=== PATIENT | male | born 1990 | race Two or more races ===

== ENCOUNTER 2025-04-01 19:56 | Emergency (ER) | payer BC, OTHER ==
[~2025-04-01] VITALS: Ht 170.2 cm; Wt 72.7 kg
--- NOTE | 2025-04-01 20:12 | ED.PDOC ---
History of Present Illness(SKN HPI Comments PTG CAME TO ER WITH CC OF INJURY TO LEFT POINTER FINGER, PT WAS WORKING ON HIS TRUCK WHEN A SCREW SLICED HIS FINGER. PT IS A&OX4 RR EVEN ANF REGULAR. DENIES NUMBNESS, WEAKNESS, FEVER OR CHILLS Chief Complaint: Upper Extremity Time Seen by MD: 20:02 History of Present Illness: Nurses Notes, Medications, Allergies Allergies: Coded Allergies: NO KNOWN ALLERGIES (Unverified , 04/01/25) Information Source: Patient, Spouse Mode of Arrival: Ambulatory Past Medical History PAST MEDICAL HISTORY: Denies Surgical History: Denies all surgeries Family History Family History: Unknown Social History Smoker: Non-Smoker Alcohol: Denies ETOH Use Drugs: Denies Drug Use All Other Systems: Reviewed and Negative (SEE HPI) Physical Exam General Appearance: No Apparent Distress, Normal HEENT: Pharynx Normal Neck: Full Range of Motion, Non-Tender Respiratory: Lungs Clear, No Respiratory Distress, Normal Breath Sounds Cardiovascular: No Murmur, Normal Peripheral Pulses, Regular Rate/Rhythm Breast Exam: Deferred Gastrointestinal: Non Tender, Soft Genitalia: Deferred Pelvic: Deferred Rectal: Deferred Extremities: Normal capillary refill, Normal range of motion Musculoskeletal : Apperance: Normal Neurologic: Alert, No Motor Deficits, Normal Affect, Normal Mood, No Sensory Deficits Cerebellar Function: Normal Reflexes: NOT DONE Skin: Dry, Normal Color, Warm, Wounds (LEFT 2ND DIGIT DISTAL PHALANGES NOTED HEALED OVER AVULSION WITH CONTROLLED BLEEDING NO OBVIOUS FOREIGN BODY CAP REFILL LESS THAN 3 SECONDS NAIL INTACT) Lymphatic: No Adenopathy Was a procedure done? Was a procedure done?: No Differential Diagnosis (INTG) Differential Diagnosis: Abrasion, Contusion, Fracture, Hematoma, Laceration, Puncture Wound X-Ray, Labs, Meds, VS Vital Signs Date Time Temp Pulse Resp B/P (MAP) Pulse Ox O2 Delivery O2 Flow Rate FiO2 04/01/25 21:02 98.2 87 16 126/88 (101) 97 98.2 04/01/25 20:02 98.4 95 18 134/81 96 98.4 X-Ray, Labs, Meds, VS Comment WOUND CLEANSED AND WRAPPED. SUPERFICIAL AVULSION PATIENT TETANUS UPDATED SCRIPT TRIAL OF ANTIBIOTICS ADVISED TAKE MEDICATION PRESCRIBED SIDE EFFECTS DISCUSSED. FOLLOW UP WITH YOUR PCP IN 2-3 DAYS NECESSARY ER RETURN PRECAUTIONS GIVEN PATIENT INDICATES UNDERSTANDING AGREES WITH DISCHARGE PLAN OF CARE. Time of 1ST Reevaluation: 20:02 Reevaluation 1ST: Unchanged Time of 2ND Reevaluation: 20:11 Reevaluation 2ND: Improved Patient Education/Counseling: Diagnosis, Treatment, Need For Follow Up Family Education/Counseling: Diagnosis, Treatment SEPSIS Sepsis Screen Date sepsis recognized/suspect: Apr 01, 2025 Time Sepsis recognized/suspect: 2004 Recent Procedure: No On Antibiotic Therapy: No Respiratory Rate >20: No Heart Rate >90: No Temp<36 C (96.8 F) or >38.3 C: No SBP <90 or MAP <65 mmHG: No New Acute Mental Status Change: No Is the patient on CPAP, BIPAP,: No Vital Signs Date Time Temp Pulse Resp B/P (MAP) Pulse Ox O2 Delivery O2 Flow Rate FiO2 04/01/25 21:02 98.2 87 16 126/88 (101) 97 98.2 04/01/25 20:02 98.4 95 18 134/81 96 98.4 Departure 1 Departure Time of Disposition: 20:11 Impression: Primary Impression: Avulsion, finger tip Qualified Codes: S61.209A - Unspecified open wound of unspecified finger without damage to nail, initial encounter Disposition: HOME / SELF CARE / HOMELESS Condition: Other e-Prescriptions Amoxicillin & Pot Clavulanate (AUGMENTIN TABLET) 875 Mg Tb 875 MG PO BID for 5 Days, #10 TAB Prov: ÁNGELA MARTINO 04/01/25 Discharged With: Spouse Critical Care Note Critical Care Time?: No Stability Stability form required: ÁNGELA Cortez Apr 01, 2025 20:12
[2025-04-01 21:02] VITALS: BP 126/88; PULSE 87; RESP 16; TEMP 98.2; O2SAT 97
[2025-04-01] MEDS ORDERED: AUG875T PO (21:44)
[2025-04-01] MEDS: TETANUS-DIPTH-ACEL PERTUSSIS 0.5ML SYR Tdap IM ONE (21:55)
== END 2025-04-01 21:56 | disposition home or self-care (01) ==
LOC: ER 19:56
DX: S61.211A Laceration without foreign body of left index finger without damage to nail, initial encounter (principal); X58.XXXA Exposure to other specified factors, initial encounter; Y93.89 Activity, other specified; Y92.89 Other specified places as the place of occurrence of the external cause; Y99.8 Other external cause status